=== PATIENT | female | born 1980 | race Caucasian/White ===

== ENCOUNTER → 2016-10-07 | Outpatient (REF) ==
[~2016-10-07] MED LIST: GLUCOPHAGE500 MG/TAB PO; LEVEMIR100 U/ML SC; MOTRIN 600600 MG/TAB PO; PERCOCET 325 MG1 TA2 PO; PRENATAL1 TA1 PO; SENOKOT S 50 MG1 TAB PO; VALTREX500 MG PO; ZOVIRAX400 MG
== END ==
LOC: ZLAB.WCH 17:30
DX: Z02.89 Encounter for other administrative examinations (principal)

== ENCOUNTER → 2016-12-23 | Outpatient (CLI) | payer BC | LOC: COL.VAS 14:45 | DX: I82.611 Acute embolism and thrombosis of superficial veins of right upper extremity (principal) ==

== ENCOUNTER → 2023-12-01 | Outpatient (CLI) | payer BC | LOC: MC.RAD 14:59 | DX: Z12.31 Encounter for screening mammogram for malignant neoplasm of breast (principal); N63.20 Unspecified lump in the left breast, unspecified quadrant; N63.10 Unspecified lump in the right breast, unspecified quadrant ==